=== PATIENT | male | born 1985 | race Caucasian/White ===

== ENCOUNTER 2017-06-01 05:16 | Day surgery (SDC) | payer OTHER ==
[~2017-06-01] VITALS: Ht 182.9 cm; Wt 94.3 kg
--- NOTE | ~2017-06-01 | O ---
[facility] [place] [address] OPERATIVE REPORT Name: MIRTHA WYNN Room #: 150-6 [facility] M.R.#: [id number] Admission: 06/01/17 Attend Phys: Josse Venegas MD Discharge: Date of : 89 Report #: [id number] THIS REPORT FOR: //name// CC: REYNALDO Venegas DATE OF SERVICE: 06/01/2017 PREOPERATIVE DIAGNOSES: Nasal septal deformity/deviation and turbinate hypertrophy. POSTOPERATIVE DIAGNOSES: Nasal septal deformity/deviation and turbinate hypertrophy. PROCEDURE: Nasal septal reconstruction, inferior turbinate submucous resection and outfracturing. SURGEON: Josse Venegas M.D. ANESTHESIA: General LMA. INDICATIONS: See H and P. FINDINGS: The quadrangular cartilage had a severe bowing to the patient's right side, impacting against the anterior and middle portion of the inferior turbinate, with maxillary crest deviation to the right side as well. Left greater than right turbinate hypertrophy was noted. TECHNIQUE: After obtaining consent, he was brought to the operating suite. Appropriate time-out was performed. General LMA anesthetic was obtained. The bed was turned 90 degrees. Nose was prepped and draped in the usual sterile fashion. A 7 mL of 1% Xylocaine, 1:100,000 epinephrine was injected in each side of the nasal septum. Later in the case, an additional mL was injected in each inferior turbinate. A right-sided hemitransfixion incision was made due to the severe deviation of the quadrangular cartilage even up against the caudal edge. A right-sided elevation of mucoperichondrial flap was created, pass the quadrangular cartilage, bony junction into the vomer and perpendicular plate, harvested a large somewhat square-shaped piece of quadrangular cartilage, mainly in the posterior aspect. I then elevated inferiorly and posteriorly on the left side and removed the inferior portion of the quadrangular cartilage, leaving enough anteriorly and superiorly for tip support. I then returned to the anterior caudal most edge of the quadrangle cartilage and due to this large bowing to the right side, I created a swinging door by taking a small amount off the inferior edge, lifting the quadrangle cartilage off to the left side. This fully allowed [facility] [address] [place] [address] OPERATIVE REPORT Name: MIRTHA WYNN Room #: 150-6 [facility] M.R.#: [id number] Admission: 06/01/17 Attend Phys: Josse Venegas MD Discharge: Date of : 89 Report #: [id number] me to expose the maxillary crest, remove the mucosal flap on each side to expose the maxillary crest and took this down with a combination of a double action scissors and Jesus Alberto forceps. At this point, I was able to then disarticulate the superior aspect of the bony cartilaginous junction and elevate a mucosal flap on each side of the vomer and perpendicular plate and remove the deviated vomer with the use of Randy-Stark scissors and Jesus Alberto forceps. This allowed the septum to swing more towards the middle throughout the entire aspect and certainly improved airflow on the right side. Previously harvested cartilage was trimmed and morcellized. Then a couple pieces were placed in the mid portion of the septum. The hemitransfixion incision was closed with 4-0 chromic suture. I put a single chromic stitch between the inferior aspect of the caudal edge of the quadrangular cartilage and sutured this to the maxillary crest anteriorly for anchoring. Each inferior turbinate was then medialized with a [place]. Submucous resection was performed on the medial and medial inferior surfaces with a microdebrider blade to effect. Each inferior turbinate was outfractured. Simple splints designed and fashioned myself were placed in each side of the septum and secured with 3-0 Prolene suture. Merogel was placed between the septum and the inferior turbinate bilaterally. The patient was then allowed to awaken from anesthesia, went to recovery room in stable condition. ESTIMATED BLOOD LOSS: 25 mL. By: [id number] Josse Venegas MD /abby
[~2017-06-01 05:16] MED LIST: BACTRIM DS TAB1 EACH PO; CLARITIN10 MG PO
[2017-06-01 08:29] VITALS: BP 135/75
[2017-06-01 10:27] VITALS: BP 135/75
== END 2017-06-01 11:10 | disposition home or self-care (01) ==
LOC: OR 05:16 → TBA 05:17 → OR 10:34
DX: J34.2 Deviated nasal septum (principal); J34.3 Hypertrophy of nasal turbinates; J34.89 Other specified disorders of nose and nasal sinuses; F17.210 Nicotine dependence, cigarettes, uncomplicated; Z98.890 Other specified postprocedural states
CPT/HCPCS: 50010; 50101; 50386; 50398; 51316; 51634; 53635; 56526; 56528; 62110; 62900